=== PATIENT | male | born 1995 | race Caucasian/White ===

== ENCOUNTER 2019-01-04 20:20 | Emergency (ER) | payer MEDICAID ==
[~2019-01-04] VITALS: Ht 167.6 cm; Wt 68.0 kg
[2019-01-04 20:46] VITALS: BP_SYST 132
[2019-01-04 21:30] VITALS: BP_SYST 134
== END 2019-01-04 21:30 | disposition home or self-care (01) ==
LOC: SED 20:20
DX: S51.811A Laceration without foreign body of right forearm, initial encounter (principal); X58.XXXA Exposure to other specified factors, initial encounter
CPT/HCPCS: 99282

== ENCOUNTER 2019-01-20 19:15 | Emergency (ER) | payer MEDICAID ==
[~2019-01-20] VITALS: Ht 167.6 cm; Wt 63.5 kg
[2019-01-20 19:27] VITALS: BP_SYST 127
[2019-01-20 21:10] VITALS: BP_SYST 120
== END 2019-01-20 21:10 | disposition home or self-care (01) ==
LOC: SED 19:15
DX: F41.9 Anxiety disorder, unspecified (principal); Z76.0 Encounter for issue of repeat prescription
CPT/HCPCS: 99283

== ENCOUNTER 2019-02-09 18:03 | Emergency (ER) | payer MEDICAID ==
[~2019-02-09] VITALS: Ht 167.6 cm; Wt 68.0 kg
[2019-02-09 18:27] VITALS: BP_SYST 128
[2019-02-09 19:19] VITALS: BP_SYST 134
== END 2019-02-09 19:19 | disposition home or self-care (01) ==
LOC: SED 18:03
DX: F41.9 Anxiety disorder, unspecified (principal); Z76.0 Encounter for issue of repeat prescription; R03.0 Elevated blood-pressure reading, without diagnosis of hypertension; F17.210 Nicotine dependence, cigarettes, uncomplicated; Z71.6 Tobacco abuse counseling
CPT/HCPCS: 99283

== ENCOUNTER 2019-03-23 21:17 | Emergency (ER) | payer MEDICAID ==
[~2019-03-23] VITALS: Ht 167.6 cm; Wt 68.0 kg
[2019-03-23 21:30] VITALS: BP_SYST 135
[2019-03-23 23:27] VITALS: BP_SYST 135
[2019-03-23] MEDS ORDERED: ALPRAZolam 0.25 MG TABLET PO ONE (23:30)
== END 2019-03-23 23:27 | disposition home or self-care (01) ==
LOC: SED 21:17
DX: F41.9 Anxiety disorder, unspecified (principal); Z76.0 Encounter for issue of repeat prescription
CPT/HCPCS: 99282; 99283